=== PATIENT | male | born 1985 | race Two or more races ===

== ENCOUNTER 2021-04-17 12:38 | Emergency (ER) | payer OTHER ==
[2021-04-17] MEDS ORDERED: MEDROL 4MG DOSEP4 MG PO (13:17)
[2021-04-17] MEDS ORDERED: CYCLOBENZAPRINE10 MG PO (13:17)
== END 2021-04-17 14:04 | disposition home or self-care (01) ==
LOC: FER 12:38
DX: S39.012A Strain of muscle, fascia and tendon of lower back, initial encounter (principal); Z53.29 Procedure and treatment not carried out because of patient's decision for other reasons; W01.0XXA Fall on same level from slipping, tripping and stumbling without subsequent striking against object, initial encounter
CPT/HCPCS: 99283